=== PATIENT | male | born 1945 | race Caucasian/White ===

== ENCOUNTER 2016-05-04 07:51 | Inpatient (IN) | payer MEDICARE, BC ==
[~2016-05-04] VITALS: Ht 170.2 cm; Wt 69.3 kg
[~2016-05-04 07:51] MED LIST: ASPIRIN E.C. 8181 MG PO; CRESTOR20 MG PO
[2016-05-04] MEDS ORDERED: COLACE 100100 MG/CAP PO (08:11)
[2016-05-04] MEDS ORDERED: XARELTO20 MG PO (08:12)
[2016-05-04] MEDS ORDERED: MULTI VITAMINS1 TAB PO (08:12)
[2016-05-04] MEDS ORDERED: XALATAN EYE DROPS OD (08:13)
[2016-05-04 08:35] VITALS: BP 121/75; PULSE 79; TEMP 97.9
[2016-05-04 08:44] LABS: BASO % 0.5 % (0.0-2.0); EOS # 0.4 (0.0-0.7); GRAN # 4.5 (1.4-6.5); GRAN % 60.7 % (42.2-75.2); HEMATOCRIT 47.1 % (42.0-52.0); LYMPH # 1.8 (1.2-3.4); LYMPH % 23.7 % (20.0-51.0); MEAN CELL VOLUME 89 fl (80.0-100.0); MEAN CORPUSCULAR HEMOGLOBIN 30 pg (27.0-31.0); MEAN CORPUSCULAR HGB CONC 34 g/dl (33.0-37.0); MEAN PLATELET VOLUME 9.2 fl (7.4-10.4); MONO # 0.7 (0.1-0.6); MONO % 9.8 % (1.7-9.3); PLATELET COUNT 230 K/mm3 (130-400); WHITE BLOOD COUNT 7.4 K/mm3 (4.8-10.8)
[2016-05-04 08:50] LABS: INR 1.5 (0.8-3.0); PROTHROMBIN TIME 16.9 SECONDS (9.7-12.8)
[2016-05-04 09:03] LABS: ADJUSTED CALCIUM 9.8 mg/dL (8.4-10.2); ALBUMIN 3.8 gm/dL (3.5-5.0); BILIRUBIN,TOTAL 0.9 mg/dL (0.0-1.0); CALCIUM 9.6 mg/dL (8.4-10.2); CREATININE, serum 1.05 mg/dL (0.66-1.25); MAGNESIUM 2.3 mg/dL (1.6-2.3); POTASSIUM 4.1 mmol/L (3.4-5.0); TOTAL PROTEIN 7.1 gm/dL (6.4-8.2)
[2016-05-04 12:01] VITALS: BP 107/64; PULSE 68; TEMP 97.5
[2016-05-04 17:40] VITALS: BP 96/68; PULSE 73; TEMP 98.3
[2016-05-04 20:34] VITALS: BP 96/60; PULSE 65; TEMP 98.5
[2016-05-05 00:10] VITALS: BP 99/73; PULSE 67; TEMP 97.6
[2016-05-05 03:47] VITALS: BP 113/74; PULSE 70; TEMP 97.9
[2016-05-05 07:26] VITALS: BP 115/77; PULSE 72; TEMP 97.7
[2016-05-05 11:17] VITALS: BP 96/57; PULSE 66; TEMP 97.1
[2016-05-05 15:36] VITALS: BP 96/70; PULSE 71; TEMP 97.8
[2016-05-05 19:42] VITALS: BP 90/57; PULSE 73; TEMP 98
[2016-05-06 00:36] VITALS: BP 98/73; PULSE 76; TEMP 97.9
[2016-05-06 03:48] VITALS: BP 98/57; PULSE 72; TEMP 97.7
[2016-05-06 07:57] LABS: CALCIUM 9.1 mg/dL (8.4-10.2); CREATININE, serum 1.08 mg/dL (0.66-1.25)
[2016-05-06 07:58] LABS: INR 1.7 (0.8-3.0); PROTHROMBIN TIME 18.7 SECONDS (9.7-12.8)
[2016-05-06 08:24] VITALS: BP 107/71; PULSE 69; TEMP 98
[2016-05-06 10:40] VITALS: BP 91/65; PULSE 55
[2016-05-06 10:50] VITALS: BP 94/67; PULSE 55
[2016-05-06 11:00] VITALS: BP 105/65; PULSE 51
[2016-05-06] MEDS ORDERED: BETAPACE 80MG80 MG PO (11:37)
== END 2016-05-06 13:00 | disposition home or self-care (01) | DRG 310 ==
LOC: MEDICAL 07:51
PROVIDERS: Internal Medicine Cardiovascular Disease
PROC: 5A2204Z Restoration of Cardiac Rhythm, Single (ICD-10-PCS; principal; 2016-05-06)
DX: I48.1 Persistent atrial fibrillation (principal); I10 Essential (primary) hypertension
CPT/HCPCS: J0330; J2704

== ENCOUNTER 2016-05-20 06:58 | Day surgery (SDC) | payer MEDICARE, BC ==
[~2016-05-20] VITALS: Ht 170.2 cm; Wt 70.9 kg
[2016-05-20] VITALS (11 sets, daily range): BP systolic 108–137; BP diastolic 67–90; PULSE 39–56; TEMP 97
[~2016-05-20 06:58] MED LIST changes: +BETAPACE 80MG80 MG PO; +COLACE 100100 MG/CAP PO; +MULTI VITAMINS1 TAB PO; +XALATAN EYE DROPS OD; +XARELTO20 MG PO
[2016-05-20] MEDS ORDERED: ASPIRIN 81M81 MG/TA2 PO (07:19)
[2016-05-20 07:51] LABS: HEMATOCRIT 46.2 % (42.0-52.0); HEMOGLOBIN 15.7 g/dl (13.5-18.0); MEAN CELL VOLUME 90 fl (80.0-100.0); MEAN CORPUSCULAR HEMOGLOBIN 31 pg (27.0-31.0); MEAN CORPUSCULAR HGB CONC 34 g/dl (33.0-37.0); MEAN PLATELET VOLUME 9.7 fl (7.4-10.4); PLATELET COUNT 230 K/mm3 (130-400); RED BLOOD COUNT 5.15 M/mm3 (4.20-5.60); REDCELL DISTRIBUTION WIDTH-CV 12.9 % (11.5-14.5); WHITE BLOOD COUNT 9.5 K/mm3 (4.8-10.8)
[2016-05-20 08:01] LABS: INR 1.1 (0.8-3.0); PROTHROMBIN TIME 12.3 SECONDS (9.7-12.8)
[2016-05-20 08:21] LABS: CALCIUM 9.3 mg/dL (8.4-10.2); CREATININE, serum 1.01 mg/dL (0.66-1.25); POTASSIUM 4.2 mmol/L (3.4-5.0)
== END 2016-05-20 13:42 | disposition home or self-care (01) ==
LOC: COL.RAD 06:58
PROVIDERS: Internal Medicine Cardiovascular Disease
DX: I25.10 Atherosclerotic heart disease of native coronary artery without angina pectoris (principal); R94.39 Abnormal result of other cardiovascular function study; R07.9 Chest pain, unspecified; I10 Essential (primary) hypertension; Z79.899 Other long term (current) drug therapy; I48.0 Paroxysmal atrial fibrillation; R07.89 Other chest pain; E78.2 Mixed hyperlipidemia; Z79.01 Long term (current) use of anticoagulants
CPT/HCPCS: C1760; J2250; J3010; Q9967

== ENCOUNTER 2019-03-22 12:17 | Inpatient (IN) | payer MEDICARE, BC ==
[~2019-03-22] VITALS: Ht 170.2 cm; Wt 66.6 kg
[~2019-03-22 12:17] MED LIST changes: +ASPIRIN 81M81 MG/TA2 PO
--- NOTE | 2019-03-25 09:15 | NUR ---
Reported to primary nurse admission B done and IV started in left arm.Reported primary nurse to do Med Rec review.Primary Nurse verbalized understanding.
[2019-03-25 09:33] LABS: BASO % 0.5 % (0.0-2.0); EOS # 0.3 (0.0-0.7); EOS % 4.1 % (0-4.0); GRAN # 5.3 (1.4-6.5); GRAN % 64.2 % (42.2-75.2); HEMOGLOBIN 15.6 g/dl (13.5-18.0); LYMPH # 1.8 (1.2-3.4); LYMPH % 21.6 % (20.0-51.0); MEAN CELL VOLUME 92 fl (80.0-100.0); MEAN CORPUSCULAR HEMOGLOBIN 31 pg (27.0-31.0); MEAN CORPUSCULAR HGB CONC 34 g/dl (33.0-37.0); MEAN PLATELET VOLUME 9.2 fl (7.4-10.4); MONO # 0.8 (0.1-0.6); MONO % 9.4 % (1.7-9.3); PLATELET COUNT 209 K/mm3 (130-400); RED BLOOD COUNT 4.99 M/mm3 (4.20-5.60); REDCELL DISTRIBUTION WIDTH-CV 13.1 % (11.5-14.5)
[2019-03-25 09:42] LABS: ALBUMIN 3.9 gm/dL (3.5-5.0); BILIRUBIN,TOTAL 0.6 mg/dL (0.0-1.0); CALCIUM 9.2 mg/dL (8.4-10.2); CREATININE, serum 1.01 (0.66-1.25); MAGNESIUM 2.3 mg/dL (1.6-2.3); POTASSIUM 4.2 mmol/L (3.4-5.0)
[2019-03-25 09:44] LABS: INR 1.4 (0.8-3.0); PROTHROMBIN TIME 15.9 SECONDS (9.7-12.8)
[2019-03-25 10:33] VITALS: BP 128/73; PULSE 76; TEMP 98
--- NOTE | 2019-03-25 11:00 | NUR ---
Pt arrived into room 307 at this time. He is A/O x4. His breathing is even and unlabored on RA. Pt denies any pain, chest pain or palpitations. VSS. POC discussed with patient, who verbalizes understanding. IV to LAC intact. Tele monitor in place. Will continue to monitor.
[2019-03-25] MEDS ORDERED: NITROSTAT0.4 MG/TAB SL (11:37)
[2019-03-25] MEDS ORDERED: ZETIA 10MG TAB10 MG PO (11:39)
[2019-03-25 12:44] VITALS: BP 111/81; PULSE 73; TEMP 98
[2019-03-25] MEDS ORDERED: SYSTANE 0.4%-0.1 SOL OP (16:13)
[2019-03-25 17:09] VITALS: BP 109/81; PULSE 73; TEMP 98.3
[2019-03-25 19:35] VITALS: BP 104/65; PULSE 74; TEMP 97.4
--- NOTE | 2019-03-25 19:47 | NUR ---
Sitting at bedside. Assessment complete. Lungs clear. Heart sounds normal-irregular. Bowels active x4. Pulses strong throughout. No edema. INT left AC flushed without complications and wrapped with DAINA wrap. Denies pain. Denies needs at this time. Call light in reach.
[2019-03-25 23:04] VITALS: BP 100/70; PULSE 71; TEMP 97.7
--- NOTE | 2019-03-25 23:15 | NUR ---
Resting in bed. Denies needs. Denies pain. Call light in reach.
--- NOTE | 2019-03-26 01:52 | NUR ---
Resting in recliner watching television. Call light in reach.
[2019-03-26 03:56] VITALS: BP 118/80; PULSE 70; TEMP 98
--- NOTE | 2019-03-26 05:43 | NUR ---
Patient had uneventful night. Resting in bed this AM. Call light in reach.
[2019-03-26 07:08] VITALS: BP 125/83; PULSE 72; TEMP 98.2
--- NOTE | 2019-03-26 07:14 | NUR ---
Report given to SHEYLA Holland
[2019-03-26 07:17] LABS: INR 2.2 (0.8-3.0); PROTHROMBIN TIME 26.3 SECONDS (9.7-12.8)
--- NOTE | 2019-03-26 08:41 | NUR ---
Pt assessment completed and charted. Morning medications administered per MAY. Pt is A&O, independent in room. Pt on room air, denies dizziness, SOB, N/V/D, chest pain, palpitations. RAC INT IV flushes w/o complications. Pulses strong bilaterally. Breathing is even and unlabored. No concerns expressed at this time. Pt up ambulating in halls independently.
--- NOTE | 2019-03-26 10:48 | NUR ---
Initial visit; Patient thenked Registered Appraiser for looking in on him and offering spiritual care and prayer.
[2019-03-26 11:25] VITALS: BP 122/83; PULSE 80; TEMP 98.4
--- NOTE | 2019-03-26 11:32 | NUR ---
Admissions Rn met with patient and patient's , Alicia ([phone]) to discuss discharge planning. Patient lives in [place], [place] with his and sees Dr. Fisher in [place] for primary care. Patient obtains medications from [facility] in [place]. Patient does not use any DME and reports independence with ADLS. Patient reports his , Alicia is DPOA-HC but SW did not locate Advance Directives in the EMR. Patient plans to return home upon discharge. No other concerns at this time.
[2019-03-26 16:23] VITALS: BP 113/81; PULSE 64; TEMP 98.5
[2019-03-26 19:32] VITALS: BP 127/77; PULSE 70; TEMP 98.4
--- NOTE | 2019-03-26 19:40 | NUR ---
Sitting at bedside. Assessment complete. Lungs clear. Heart sounds normal. Bowels active x4. Pulses strong throughout. No edema noted. INT left AC flushed without complications. Denies pain. Denies needs at this time. Call light in reach.
[2019-03-27 00:28] VITALS: BP 107/74; PULSE 73; TEMP 97.8
--- NOTE | 2019-03-27 00:30 | NUR ---
Resting in recliner. Denies needs. Call light in reach.
--- NOTE | 2019-03-27 04:45 | NUR ---
Resting in bed. Denies needs. Call light in reach.
[2019-03-27 04:46] VITALS: BP 125/71; PULSE 75; TEMP 97.7
--- NOTE | 2019-03-27 05:40 | NUR ---
Patient had uneventful night. Resting in bed this AM. call light in reach.
[2019-03-27 06:03] LABS: BASO % 0.4 % (0.0-2.0); EOS # 0.4 (0.0-0.7); EOS % 3.9 % (0-4.0); GRAN # 5.4 (1.4-6.5); GRAN % 59.6 % (42.2-75.2); HEMATOCRIT 45.1 % (42.0-52.0); INR 2.5 (0.8-3.0); LYMPH # 2.4 (1.2-3.4); LYMPH % 26.3 % (20.0-51.0); MEAN CELL VOLUME 92 fl (80.0-100.0); MEAN CORPUSCULAR HEMOGLOBIN 31 pg (27.0-31.0); MEAN CORPUSCULAR HGB CONC 33 g/dl (33.0-37.0); MEAN PLATELET VOLUME 9.7 fl (7.4-10.4); MONO # 0.9 (0.1-0.6); MONO % 9.7 % (1.7-9.3); PLATELET COUNT 199 K/mm3 (130-400); PROTHROMBIN TIME 30.3 SECONDS (9.7-12.8); RED BLOOD COUNT 4.91 M/mm3 (4.20-5.60); REDCELL DISTRIBUTION WIDTH-CV 12.9 % (11.5-14.5)
[2019-03-27 06:09] LABS: CALCIUM 8.8 mg/dL (8.4-10.2); CREATININE, serum 1.11 (0.66-1.25); POTASSIUM 4.1 mmol/L (3.4-5.0)
--- NOTE | 2019-03-27 06:48 | NUR ---
Report given to SHEYLA Holland
[2019-03-27 07:36] VITALS: BP 116/80; PULSE 79; TEMP 98.1
--- NOTE | 2019-03-27 08:15 | NUR ---
Pt assessment completed and charted. Morning medications administered per MAY. Pt is A&O, independent in room. Pt denies pain, dizziness, chest pain, N/V/D, SOB. Pt on room air, breathing is even and unlabored, LS cta. HR reg. Pulses strong bilaterally and pt on tele. BSx4. LAC INT IV flushes w/o complications. No other concerns voiced by patient at this time. Call light within reach.
[2019-03-27 11:19] VITALS: BP 112/72; PULSE 71; TEMP 98.4
--- NOTE | 2019-03-27 14:49 | NUR ---
Follow-up visit; Patient introduced daughters to Tipple Supervisor who noticed Constantine was out and about and prays he continues to do better. Tipple Supervisor reiterated to Constantine that she is available for spiritual care throughout his day.
[2019-03-27 16:46] VITALS: BP 108/74; PULSE 63; TEMP 97.2
--- NOTE | 2019-03-27 18:28 | NUR ---
Pt had uneventful day, denies any pain or discomfort. No further needs expressed.
[2019-03-27 20:00] VITALS: BP 104/69; PULSE 76; TEMP 98
--- NOTE | 2019-03-27 20:00 | NUR ---
Sitting in recliner. Assessment complete. Lungs clear. Heart sounds normal. Bowels active x4. Pulses strong throughout. No edema noted. INT left AC flushed without complications. Denies pain. Denies needs. Call light in reach.
--- NOTE | 2019-03-27 20:30 | NUR ---
Patient ambulating in hallways. Denies needs at this time.
--- NOTE | 2019-03-27 21:15 | NUR ---
Sitting in recliner. Provided with scheduled eye drops. Denies needs. call light in reach.
[2019-03-28 00:10] VITALS: BP 103/73; PULSE 65; TEMP 98.1
--- NOTE | 2019-03-28 00:22 | NUR ---
Resting in recliner. Denies needs. Call light in reach.
[2019-03-28 02:56] VITALS: BP 103/59; PULSE 93; TEMP 97.7
--- NOTE | 2019-03-28 03:16 | NUR ---
Resting in bed. Denies needs. Call light in reach.
--- NOTE | 2019-03-28 06:15 | NUR ---
Patient had uneventful night. Resting in bed this AM. Call light in reach.
[2019-03-28 06:43] LABS: BASO % 0.3 % (0.0-2.0); EOS # 0.4 (0.0-0.7); EOS % 4.5 % (0-4.0); GRAN # 5.7 (1.4-6.5); GRAN % 62.5 % (42.2-75.2); HEMOGLOBIN 14.9 g/dl (13.5-18.0); LYMPH # 2.1 (1.2-3.4); LYMPH % 23.1 % (20.0-51.0); MEAN CELL VOLUME 92 fl (80.0-100.0); MEAN CORPUSCULAR HEMOGLOBIN 31 pg (27.0-31.0); MEAN CORPUSCULAR HGB CONC 33 g/dl (33.0-37.0); MEAN PLATELET VOLUME 9.9 fl (7.4-10.4); MONO # 0.9 (0.1-0.6); MONO % 9.4 % (1.7-9.3); PLATELET COUNT 206 K/mm3 (130-400); RED BLOOD COUNT 4.89 M/mm3 (4.20-5.60)
[2019-03-28 06:52] LABS: INR 2.4 (0.8-3.0); PROTHROMBIN TIME 28.9 SECONDS (9.7-12.8)
[2019-03-28 07:01] LABS: CALCIUM 8.9 mg/dL (8.4-10.2); CREATININE, serum 1.23 (0.66-1.25); MAGNESIUM 2.1 mg/dL (1.6-2.3); POTASSIUM 4.3 mmol/L (3.4-5.0)
--- NOTE | 2019-03-28 07:06 | NUR ---
Report given to SHEYLA Castaneda
[2019-03-28 07:42] VITALS: BP 115/80; PULSE 83; TEMP 98.4
--- NOTE | 2019-03-28 07:51 | NUR ---
Pt assessment complete. Pt is sitting up on the side of the bed upon entry, he is A/o x4. His breathing is even and unlabored on RA. Pt denies SOB. No chest pain or palpitations present. Pt denies pain. POC discussed with patient who verbalizes understanding. No needs at this time. Call light within reach.
[2019-03-28 13:10] VITALS: BP 137/74; PULSE 81; TEMP 98.1
[2019-03-28 15:32] VITALS: BP 127/76; PULSE 75; TEMP 97.8
--- NOTE | 2019-03-28 18:20 | NUR ---
Pt had uneventful day. Up ambulating in the hallways. POC discussed with patient who plans to have cardioversion tomorrow. NPO at midnight. No needs at this time.
--- NOTE | 2019-03-28 20:45 | NUR ---
Patient assessed at this time. Alert and oriented x 4, and able to make needs known. Denies having pain and discomfort at this time. Peripheral IV to left wrist flushed. Site is without redness, warmth, swelling, and pain. Wrapped with DAINA wrap as requested. Denies having SOB and dypsnea. LS CTA. Respirations even and unlabored. HRI. Telemetry: A-fib. Capillary refill less than 3 seconds. Non-tenting skin turgor. BSAx4. Abdomen soft and non-tender. No edema. Voices no questions, needs, or concerns at this time. Aware of cardioversion planned for tomorrow. Understands that he can not have anything to eat or drink after midnight.
[2019-03-28 21:04] VITALS: BP 129/77; PULSE 76; TEMP 98.4
[2019-03-29] VITALS (12 sets, daily range): BP systolic 101–142; BP diastolic 68–88; PULSE 69–106; TEMP 97.3–98.2
--- NOTE | 2019-03-29 05:20 | NUR ---
Patient has voiced no questions, needs, or concerns this shift. Has been NPO since midnight for cardioversion today. Has denied having pain and discomfort.
[2019-03-29 06:27] LABS: BASO % 0.4 % (0.0-2.0); EOS # 0.3 (0.0-0.7); EOS % 3.9 % (0-4.0); GRAN # 5.2 (1.4-6.5); GRAN % 61.4 % (42.2-75.2); HEMATOCRIT 43.9 % (42.0-52.0); HEMOGLOBIN 14.7 g/dl (13.5-18.0); LYMPH # 1.9 (1.2-3.4); MEAN CELL VOLUME 91 fl (80.0-100.0); MEAN CORPUSCULAR HEMOGLOBIN 31 pg (27.0-31.0); MEAN CORPUSCULAR HGB CONC 34 g/dl (33.0-37.0); MEAN PLATELET VOLUME 9.8 fl (7.4-10.4); MONO # 0.9 (0.1-0.6); MONO % 10.9 % (1.7-9.3); PLATELET COUNT 190 K/mm3 (130-400); RED BLOOD COUNT 4.81 M/mm3 (4.20-5.60); REDCELL DISTRIBUTION WIDTH-CV 12.8 % (11.5-14.5)
[2019-03-29 06:49] LABS: CREATININE, serum 1.18 (0.66-1.25); MAGNESIUM 2.1 mg/dL (1.6-2.3); POTASSIUM 4.2 mmol/L (3.4-5.0)
[2019-03-29 07:15] LABS: INR 2.3 (0.8-3.0); PROTHROMBIN TIME 27.2 SECONDS (9.7-12.8)
--- NOTE | 2019-03-29 07:19 | NUR ---
Report given to day shift nurse.
--- NOTE | 2019-03-29 09:14 | NUR ---
Pt assessment completed and charted. Morning medications administered per MAY. Pt to have cardioversion this morning, has been NPO since last night. Pt is A&O, independent in room. Pt denies pain at this time. HR irregular and tachy this morning. Pulses strong bilaterally. Pt on room air, denies SOB, breathing is even and unlabored. LS cta. No concerns expressed by pt at this time. LFA INT IV flushes w/o complications.
--- NOTE | 2019-03-29 13:40 | NUR ---
Pt down for cardioversion at this time.
--- NOTE | 2019-03-29 14:00 | NUR ---
Pt back from cardioversion. Converted back to sinus. VSS, pt A&O.
--- NOTE | 2019-03-29 14:04 | NUR ---
pt back in room. attempted to contact irasema patel. nurse stated she was in another room at this time. pt is alert and oriented. at bedside. call light within reach. pt has no other needs or concerns at this time.
[2019-03-29] MEDS ORDERED: Patient's Own Medica OP ×2 (15:36)
[2019-03-29] MEDS ORDERED: CORDARONE200 MG/TAB PO ×2 (15:37)
--- NOTE | 2019-03-29 18:44 | NUR ---
Pt has had uneventful day. Ambulating in halls independently. Denies pain, dizziness, SOB, palpitations. No concerns expressed.
--- NOTE | 2019-03-29 19:00 | NUR ---
PT IS SITTING IN BED. AT BEDSIDE. NO C/O PAIN OR DISCOMFORT. STATES HE LIKES TO WALK THE HALLS AND TRIES TO GO TO SLEEP BY 2100. PT HAS NO QUESTIONS OR CONCERNS AT THIS TIME. CALL LIGHT AND PHONE WITHIN REACH.
[2019-03-30 03:34] VITALS: BP 119/82; PULSE 76; TEMP 97.2
--- NOTE | 2019-03-30 05:56 | NUR ---
Pt had an uneventful night. Pt had no complaints of pain or discomfort. Pt stated hes unaware of the feeling of Afib and does not know when he goes in or out of it. No other concerns at this time. Will endorse this to the dayshift RN.
[2019-03-30 06:28] LABS: BASO % 0.5 % (0.0-2.0); EOS # 0.3 (0.0-0.7); EOS % 3.8 % (0-4.0); GRAN # 5.3 (1.4-6.5); GRAN % 63.5 % (42.2-75.2); HEMATOCRIT 43.6 % (42.0-52.0); HEMOGLOBIN 14.5 g/dl (13.5-18.0); LYMPH # 1.8 (1.2-3.4); LYMPH % 21.5 % (20.0-51.0); MEAN CELL VOLUME 91 fl (80.0-100.0); MEAN CORPUSCULAR HEMOGLOBIN 30 pg (27.0-31.0); MEAN CORPUSCULAR HGB CONC 33 g/dl (33.0-37.0); MEAN PLATELET VOLUME 9.8 fl (7.4-10.4); MONO # 0.9 (0.1-0.6); MONO % 10.5 % (1.7-9.3); PLATELET COUNT 198 K/mm3 (130-400); RED BLOOD COUNT 4.78 M/mm3 (4.20-5.60); REDCELL DISTRIBUTION WIDTH-CV 12.7 % (11.5-14.5)
[2019-03-30 06:36] LABS: CALCIUM 8.7 mg/dL (8.4-10.2); CREATININE, serum 1.08 (0.66-1.25)
--- NOTE | 2019-03-30 07:07 | NUR ---
Report given to SHEYLA Henry.
--- NOTE | 2019-03-30 07:08 | NUR ---
Pt report given to SHEYLA Garcia.
[2019-03-30 07:30] LABS: INR 3.6 (0.8-3.0); PROTHROMBIN TIME 43.4 SECONDS (9.7-12.8)
[2019-03-30 08:18] VITALS: BP 124/72; PULSE 99; TEMP 98.9
--- NOTE | 2019-03-30 10:01 | NUR ---
Pt assessment completed and charted. Morning medications administered per MAY. Pt A&O, independent in room. Pt denies dizziness, SOB, N/V/D, chest pain, palpitations. Pt on room air, breathing is even and unlabored. Pt on tele, HR irregular rhythm. Pulses strong. LS cta. No edema noted. Pt expresses no concerns at this time.
[2019-03-30] MEDS ORDERED: CORDARONE200 MG/TAB PO (10:36)
[2019-03-30 11:11] VITALS: BP 129/79; PULSE 84; TEMP 97.6
--- NOTE | 2019-03-30 13:00 | NUR ---
Pt discharge instructions discussed w/ patient and who verbalize understanding. All questions answered. No other concerns expressed. RFA INT IV dc'w w/o complications and catheter tip intact. Pt escorted out via WC.
== END 2019-03-30 13:00 | disposition home or self-care (01) | DRG 310 ==
LOC: MEDICAL 03-25 08:25
PROVIDERS: Nurse Practitioner; ADMIT Internal Medicine Cardiovascular Disease
PROC: 5A2204Z Restoration of Cardiac Rhythm, Single (ICD-10-PCS; principal; 2019-03-25)
DX: I48.0 Paroxysmal atrial fibrillation (principal)